=== PATIENT | female | born 1950 | race Caucasian/White ===

== ENCOUNTER 2018-02-04 20:23 | Emergency (ER) | payer OTHER ==
--- NOTE | 2018-02-04 20:42 | Emergency Department Record ---
History of Present Illness - General Chief complaint: Pain Stated complaint: BROKEN RIB PAIN Time Seen by Provider: 02/04/18 20:26 Source: Patient Mode of Arrival: Ambulatory Limitations: No limitations - History of Present Illness Initial comments: 67 yo female presents to ED for evaluation of right chest pain located under the right breast. Patient reports that she was seen by her PCP yesterday, diagnosed with a possible right 4th rib fracture and started on Lidocaine patches. Patient reports that her pain symptoms significantly worsened this afternoon, reports taking several [place] which have not improved her pain symptoms. Patient reports history of spinal fractures secondary to osteoporosis , denies trauma or injury that she is aware of. MD Complaint: Other (Chest pain) Onset/Timin -: Days(s) Location: Right History of Same: No Radiation: None Quality: Sharp, Stabbing Consistency: Intermittent Improves with: Nothing Worsens with: Other (Movement, breathing) Associated Symptoms: Denies other symptoms - Related Data Home Medications Medication Instructions Recorded Confirmed Last Taken Omeprazole 40 mg PO DAILY 02/04/18 02/04/18 Unknown Allergies Allergy/AdvReac Type Severity Reaction Status Date / Time codeine Allergy rash Verified 02/04/18 20:28 Penicillins Allergy rash Verified 02/04/18 20:28 Sulfa (Sulfonamide Allergy hives Verified 02/04/18 20:28 Antibiotics) tetracycline Allergy rash Verified 02/04/18 20:28 meperidine HCl [From Demerol] AdvReac sick Verified 02/04/18 20:28 Review of Systems Constitutional: Denies: Chills, Fever, Malaise, Night sweats Eyes: Denies: Eye discharge, Eye pain ENT: Denies: Congestion, Ear pain, Epistaxis Respiratory: Reports: Dyspnea. Denies: Cough, Hemoptysis Cardiovascular: Reports: Chest pain. Denies: Dyspnea on exertion Endocrine: Denies: Fatigue, Heat or cold intolerance Gastrointestinal: Denies: Abdominal pain, Nausea, Vomiting Genitourinary: Denies: Incontinence, Retention Musculoskeletal: Reports: Back pain (chronci per patient). Denies: Arthralgia Skin: Denies: Bruising, Change in color Neurological: Denies: Abnormal gait, Confusion, Headache, Seizure Psychiatric: Denies: Anxiety Hematological/Lymphatic: Denies: Anemia, Blood Clots Physical Exam - General General Appearance: Alert, Oriented x3, Cooperative, Moderate distress Limitations: No limitations - Head Head exam: Atraumatic, Normocephalic, Normal inspection Head exam detail: negative: Abrasion, Contusion, Marion's sign, General tenderness, Hematoma, Laceration - Eye Eye exam: Normal appearance. negative: Conjunctival injection, Periorbital swelling, Periorbital tenderness, Scleral icterus - ENT Ear exam: negative: Auricular hematoma, Auricular trauma Nasal Exam: negative: Active bleeding, Discharge, Dried blood, Foreign body Mouth exam: negative: Drooling, Laceration, Muffled voice, Tongue elevation - Neck Neck exam: Normal inspection. negative: Meningismus, Tenderness - Respiratory Respiratory exam: Normal lung sounds bilaterally, Chest wall tenderness. negative: Rales, Respiratory distress - Cardiovascular Cardiovascular Exam: Normal rhythm, Normal heart sounds, Tachycardia - GI/Abdominal GI/Abdominal exam: Soft. negative: Rebound, Rigid, Tenderness - Rectal Rectal exam: Deferred - exam: Deferred - Extremities Extremities exam: Normal inspection. negative: Calf tenderness, Pedal edema, Tenderness - Back Back exam: Denies: CVA tenderness (R), CVA tenderness (L) - Neurological Neurological exam: Alert, Normal gait, Oriented X3 - Psychiatric Psychiatric exam: Normal affect, Normal mood - Skin Skin exam: Normal color. negative: Abrasion Type of lesion: negative: abrasion Course Vital Signs 02/04/18 20:30 Temperature 98.4 F Pulse Rate [ 127 H Pulse Ox Probe] Respiratory 32 H Rate Blood Pressure 134/94 [Left Arm] Pulse Ox 94 L - Reevaluation(s) Reevaluation #1: 02/04/18 21:03 EKG: Sinus tachycardia 114 Normal axis, Normal intervals No acute ST-T wave changes Reevaluation #2: 02/04/18 21:12 Laboratory studies were reviewed and are grossly unremarkable for an acute process. Reevaluation #3: 02/04/18 22:25 CTA Chest: No PE Thyroid nodule Large Hiatal hernia with majority of the stomach in the chest cavity Moderate compression fractures T11/T12 new from 10/08/17 Slight retropulsion of fragments at T12 Will initiate transfer for surgical consultation. Reevaluation #4: 02/04/18 22:48 Case was discussed with Dr. Finnegan, will accept transfer for further evaluation and possible surgical consultation. Medical Decision Making - Lab Data Result diagrams: 02/04/18 20:45 10/16/18 20:45 Disposition Disposition: Transfer Clinical Impression: Hypoxia, Hiatal hernia Chest pain Qualifiers: Chest pain type: unspecified Qualified Code(s): R07.9 - Chest pain, unspecified Compression fracture of thoracic spine, non-traumatic Qualifiers: Encounter type: subsequent encounter Thoracic vertebra fracture level: T12 Fracture healing: with delayed healing Qualified Code(s): M48.54XG - Collapsed vertebra, not elsewhere classified, thoracic region, subsequent encounter for fracture with delayed healing Disposition: Acute Care Hospital Transfer Transfer To: [facility] Reason For Transfer: Surgical consultation Accepting Physician: Sivan Time Discussed w/Accepting Physician: 22:49 Condition: (2) Stable Forms: Patient Portal Access Time of Disposition: 22:49 Quality - Quality Measures Quality Measures: N/A - Blood Pressure Screening Does Patient Have Any of the Following: No Blood Pressure Classification: Pre-Hypertensive BP Reading Systolic Measurement: 120 Diastolic Measurement: 78 Screening for High Blood Pressure: < Pre-Hypertensive BP, F/U Documented > [ [id number]] Pre-Hypertensive Follow-up Interventions: Referral to alternative/primary care provider.
[2018-02-04 20:52] LABS: BASO % 0.7 % (0-6); EOS % 1.7 % (0-6); GRAN % 71.4 % (47-80); HEMATOCRIT 37.5 % (35.0-47.0); HEMOGLOBIN 11.4 gm/dl (11.6-16.0); LYMPH % 18.3 % (16-45); MEAN CELL VOLUME 82.4 fl (81-97); MEAN CORPUSCULAR HGB CONC 30.4 g/dl (32-36); MEAN PLATELET VOLUME 8.7 fl (7.4-10.4); MONO % 7.9 % (0-9); PLATELET COUNT 477 K/uL (130-400); RED BLOOD COUNT 4.55 M/uL (3.80-5.40); RED CELL DISTRIBUTION WIDTH 14.2 % (11.5-14.5); WHITE BLOOD COUNT W/O DIFF 8.2 K/uL (4.2-12.2)
[2018-02-04] MEDS: ONDANSETRON HCL IV 4 MG/2 ML VIAL IVP ONE ×2 (21:02→22:40)
[2018-02-04] MEDS: 0.9 % SODIUM CHLORIDE 1000ML 500 ML IV SCH (21:02)
[2018-02-04] MEDS: MORPHINE SULFATE 10 MG/ML VIAL IVP ONE (21:03)
[2018-02-04 21:05] LABS: BLOOD UREA NITROGEN 11 mg/dL (8-23); CREATININE 0.8 mg/dL (0.5-0.9); EST GLOMERULAR FILTRATION RATE > 60 mL/min
[2018-02-04 21:06] LABS: TOTAL PROTEIN 7.5 g/dL (6.6-8.7)
[2018-02-04 21:08] LABS: GLUCOSE,RANDOM 124 mg/dL (74-109)
[2018-02-04 21:10] LABS: ALB/GLOB RATIO 1.4 (1.1-1.8); ALBUMIN 4.4 g/dL (4.0-5.0); ALKALINE PHOSPHATASE 103 U/L (35-104); ALT/SGPT 29 U/L (<33); AST/SGOT 33 U/L (10.0-35.0)
[2018-02-04] MEDS: ACETAMINOPHEN 1,000 MG/100 ML BTL IVPB ONE (23:22)
[2018-02-05] MEDS: PROMETHAZINE HCL 12.5 MG in 0.9 % SODIUM CHLORIDE 100ML 100 ML IVPB ONE (00:25)
--- NOTE | 2018-02-06 13:16 | CT ANGIOGRAM REPORT ---
EXAM: CTA OF THE CHEST FOR PE WITH POST PROCESSING HISTORY: RIGHT SIDED RIB PAIN FOR TWO DAYS, POSSIBLE PE. TECHNIQUE: CTA of the chest was performed following intravenous administration of iodated contrast media. Please see the medical record for IV contrast specifics. Post processing on an independent workstation was performed with multiple 3D MIP series obtained. Comparison: No prior chest CT with which to compare. Comparison is made with the chest and right rib series from 02/03/18 performed yesterday. FINDINGS: No definite PE identified. No thoracic aortic aneurysm identified. There is an approximately 12 mm somewhat heterogeneous density nodule in the right lobe of the thyroid. Correlation with prior thyroid history suggested and if clinically warranted, follow-up nonemergent thyroid ultrasound could be performed for further evaluation of this. Large hiatal hernia with the majority of the stomach in the thorax. Diffuse fatty infiltration of the visualized liver. 1.9 cm cyst laterally left kidney with a CT density of 11 consistent with a cyst. No pneumothorax evident. Very small bibasilar pleural effusions in the posterior costophrenic angles. Bibasilar streaky atelectasis or infiltrate as well. Prominent compression of the bodies of T11 and T12 with some sclerosis in these bodies. This is age indeterminate although does not appear to have been present on a prior lateral chest x-ray of 08/16/17 and was not present on a lumbar spine series of 10/08/17 and so may be acute. There is slight retropulsion of the superior end plate of the body of T12. IMPRESSION: 1. NO DEFINITE PE IDENTIFIED. 2. VERY LARGE HIATAL HERNIA WITH THE MAJORITY OF THE STOMACH IN THE THORAX. 3. INDETERMINATE 12 MM NODULE RIGHT LOBE OF THE THYROID. 4. MODERATE COMPRESSION FRACTURES OF T11 AND T12, NEW SINCE 10/08/17. 5. DIFFUSE FATTY INFILTRATION OF THE LIVER. SMALL LEFT RENAL CYST. 6. VERY SMALL BIBASILAR PLEURAL EFFUSIONS AND ALSO BIBASILAR ATELECTASIS OR INFILTRATE IN THE LOWER LOBES. JOB NUMBER: [id number] MTDD
== END 2018-02-05 00:30 | disposition short-term general hospital (02) ==
LOC: ER 20:23
DX: K44.0 Diaphragmatic hernia with obstruction, without gangrene (principal); R09.02 Hypoxemia; R07.81 Pleurodynia; M48.54XG Collapsed vertebra, not elsewhere classified, thoracic region, subsequent encounter for fracture with delayed healing; I10 Essential (primary) hypertension; Z87.891 Personal history of nicotine dependence
CPT/HCPCS: 99285 ×2; 96376; 96365; 96375; 85025; 80053; 71275; 93005; 93010; Q9967; J2405; J2270; J2550; J7030